=== PATIENT | male | born 2000 | race Caucasian/White ===

== ENCOUNTER 2019-07-10 21:54 | Emergency (ER) | payer OTHER ==
--- NOTE | 2019-07-10 23:05 | RAD ---
Exam: 2 views left clavicle HISTORY: Pain. Deformity. Fall. FINDINGS: Comminuted mid left clavicle fracture with associated deformity and foreshortening. No brittany tional fractures. IMPRESSION: Left clavicle fracture.
[2019-07-11] MEDS ORDERED: HYDROcodone/Acetaminophen 10/325 mg Tablet ONE (00:27)
== END 2019-07-11 00:50 | disposition home or self-care (01) ==
LOC: ERS 21:54
DX: S42.022A Displaced fracture of shaft of left clavicle, initial encounter for closed fracture (principal); J45.909 Unspecified asthma, uncomplicated; V27.4XXA Motorcycle driver injured in collision with fixed or stationary object in traffic accident, initial encounter

== ENCOUNTER 2019-07-15 16:00 | Day surgery (SDC) | payer OTHER ==
[~2019-07-15 16:00] MED LIST: Dexamethasone 20 MG/5 ML VIAL ONE; Glycopyrrolate 0.2 MG/ML 5 ML SYRINGE ONE; Lidocaine 1% PF 5 ML VIAL ONE; Ondansetron PF 4 MG/2 ML Vial ONE; PHENYLEPHRINE-NS 100 MCG/ML 10 ML SYRINGE ONE; PROPOFOL 200 MG/20 ML VIAL ONE; Rocuronium Bromide 10 MG/ML (10ML VIAL) ONE
[2019-07-15] MEDS ORDERED: Fentanyl 100 MCG/2 ML VIAL ONE ×2 (17:08→19:25)
[2019-07-15] MEDS ORDERED: Bupivacaine PF 0.5% 30 ML VIAL ONE (17:11)
[2019-07-15] MEDS ORDERED: Midazolam HCl 2 mg/2 ml Vial ONE (17:11)
--- NOTE | 2019-07-15 19:17 | RAD ---
LEFT CLAVICLE TWO VIEWS: 07/15/19 HISTORY: Intraoperative films. These C-arm views show open reduction and internal fixation of a clavicle fracture with plate and scr ews. IMPRESSION: Fixation of a clavicle fracture. POS: JOSE
[2019-07-15] MEDS ORDERED: HYDROcodone/Acetaminophen 5/325 mg Tablet ONE (20:27)
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
== END 2019-07-15 21:04 | disposition home or self-care (01) ==
LOC: SDC 16:00
PROVIDERS: ATTEND Orthopaedic Surgery
PROC: 0PSB04Z Reposition Left Clavicle with Internal Fixation Device, Open Approach (ICD-10-PCS; principal; 2019-07-15)
DX: S42.022A Displaced fracture of shaft of left clavicle, initial encounter for closed fracture (principal); V19.9XXA Pedal cyclist (driver) (passenger) injured in unspecified traffic accident, initial encounter
CPT/HCPCS: 76000; C1713; J0690; J1100; J2001; J2250; J2405; J2704; J3010; S0020